=== PATIENT | male | born 1950 | race Caucasian/White ===

== ENCOUNTER 2022-09-24 17:13 | Emergency (ER) | payer MEDICARE ==
[~2022-09-24] VITALS: Ht 182.9 cm; Wt 72.6 kg
[2022-09-24] MEDS ORDERED: SODIUM BICARB 8.4% 50ML SYRINGE IVP ONE (17:14)
[2022-09-24] MEDS ORDERED: EPINEPHRINE 1MG/10ML(1:10,000) 0.1 MG/ML SYG IVP ONE (17:14)
[2022-09-24 17:54] LABS: BASOPHILS % (AUTO) 0.5 % (0.0-5.0); HEMATOCRIT 43.3 % (42-54); LYMPHOCYTES % (AUTO) 22.7 % (21.0-51.0); MEAN CORPUSCULAR HGB CONC 32.8 g/dL (32.0-36.0); MEAN CORPUSCULAR VOLUME 91.4 fL (79-99); NEUTROPHILS % (AUTO) 70.3 % (40.0-77.0); PLATELET COUNT (AUTO) 203 K/uL (130-400); RED BLOOD CELL COUNT(AUTO) 4.74 MIL/uL (4.50-6.20); RED CELL DISTRIBUTION WIDTH 13.5 % (11.0-15.5); WHITE BLOOD COUNT (AUTO) 7.8 K/uL (4.8-10.8)
[2022-09-24 18:05] LABS: CREATININE 1.1 mg/dL (0.5-1.5); POTASSIUM 3.5 mmol/L (3.5-5.1)
[2022-09-24 18:12] LABS: ALBUMIN 3.8 g/dL (3.5-5.0); TOTAL PROTEIN, SERUM 7.7 g/dL (6.0-8.3)
[2022-09-24 18:36] LABS: ABG BASE EXCESS -4.3 mmol/L (-2.0-3.0); ABG OXYGEN SATURATION 99.7 % (95.0-99.0); ABG PCO2 30 mmHg (35-48)
[2022-09-24 19:12] LABS: APPEARANCE,URINE CLEAR (CLEAR); BILIRUBIN,URINE NEGATIVE (NEGATIVE); COLOR,URINE LIGHT-YELLOW (YELLOW); GLUCOSE, URINE (UA) NEGATIVE (NEGATIVE); KETONES,URINE 10 mg/dL (NEGATIVE); LEUKOCYTE ESTERASE ,URINE NEGATIVE Leu/uL (NEGATIVE); NITRATE,URINE NEGATIVE (NEGATIVE); PH,URINE 6.5 (5.0-8.0); PROTEIN,URINE 30 mg/dL (NEGATIVE); UROBILINOGEN,URINE 0.2 mg/dL (0.2-1.0)
[2022-09-24 19:21] LABS: AMPHET/METH SCREEN,URINE NEGATIVE (NEGATIVE); BARBITURATE SCREEN, URINE NEGATIVE (NEGATIVE); BENZODIAZEPINES SCREEN,URINE NEGATIVE (NEGATIVE); CANNABINOID SCREEN,URINE NEGATIVE (NEGATIVE); COCAINE SCREEN,URINE NEGATIVE (NEGATIVE); OPIATE SCREEN,URINE NEGATIVE (NEGATIVE); PHENCYCLIDINE SCREEN,URINE NEGATIVE (NEGATIVE)
[2022-09-24 19:31] LABS: MUCUS,URINE RARE LPF (None Seen); SQUAMOUS EPITHELIAL CELL,UR RARE /HPF (0-2)
[2022-09-24] MEDS ORDERED: 0.9%NACL 1000ML 1,000 ML IV ONE (20:00)
[2022-09-24] MEDS ORDERED: KETOROLAC 15MG/ML VIAL (15MG/ML) IV ONE (20:00)
[2022-09-24] MEDS ORDERED: NOREPINEPHRIN 4MG/NS 250ML 250 ML IV SCH (21:00)
[2022-09-24] MEDS ORDERED: CEFTRIAXONE 1G VIAL IVP ONE (21:00)
[2022-09-24] MEDS ORDERED: 0.9%NACL 1000ML 1,000 ML IV SCH ×2 (21:30)
[2022-09-24] MEDS ORDERED: DOPAMINE 800MG/D5 250ML 250 ML IV PRN (21:30)
[2022-09-24 21:40] VITALS: BP 43/22
== END 2022-09-25 ==
LOC: EDH 17:13
DX: I46.9 Cardiac arrest, cause unspecified (principal); F17.200 Nicotine dependence, unspecified, uncomplicated; R11.2 Nausea with vomiting, unspecified
CPT/HCPCS: 99291; 92950; 31500; 96374; 71045; 96361; 96375; 82947; 82435; 84484; 84132; 84295; 80053; 82803; 80305; 85025; 85018; 87040 ×2; 83605 ×2; 86140; 81001; 36415; 93005 ×2; 36600; J3490 ×2; J7030 ×2; J0171; J0696; J1265; J1885